=== PATIENT | female | born 1975 | race Caucasian/White ===

== ENCOUNTER 2017-11-14 22:18 | Emergency (ER) | payer MEDICAID ==
[~2017-11-14] VITALS: Ht 162.6 cm; Wt 70.0 kg
[2017-11-14 22:21] VITALS: BP 126/98
[2017-11-14] MEDS ORDERED: DiphenhydrAMINE HCL 25 MG CAPSULE PO ONE (23:30)
[2017-11-14] MEDS ORDERED: ACETAMINOPHEN 500 MG TABLET PO ONE (23:30)
== END 2017-11-14 23:42 | disposition home or self-care (01) ==
LOC: EMS 22:19
DX: S50.861A Insect bite (nonvenomous) of right forearm, initial encounter (principal); W57.XXXA Bitten or stung by nonvenomous insect and other nonvenomous arthropods, initial encounter; Y93.89 Activity, other specified; Y92.89 Other specified places as the place of occurrence of the external cause; Y99.8 Other external cause status
CPT/HCPCS: 99283

== ENCOUNTER 2020-03-21 04:19 | Emergency (ER) | payer MEDICAID, OTHER ==
[~2020-03-21] VITALS: Ht 152.4 cm; Wt 68.0 kg
[2020-03-21] MEDS ORDERED: ACETAMINOPHEN 500 MG TABLET PO ONE (05:15)
[2020-03-21] MEDS ORDERED: LIDOCAINE 1% 10 ML VIAL INJ ONE (05:15)
[2020-03-21] MEDS ORDERED: LIDOCAINE 2% VISCOUS 15 ML SOLUTION UDCUP PO ONE (08:00)
[2020-03-21 08:45] VITALS: BP 110/64
== END 2020-03-21 09:30 | disposition home or self-care (01) ==
LOC: EMS 04:19
DX: J02.9 Acute pharyngitis, unspecified (principal); R09.89 Other specified symptoms and signs involving the circulatory and respiratory systems
CPT/HCPCS: J3490; 71045-TC